=== PATIENT | female | born 1990 | race Caucasian/White ===

== ENCOUNTER 2025-03-11 10:09 | Emergency (ER) | payer OTHER, SELFPAY ==
[2025-03-11 10:17] VITALS: BP 140/75; PULSE 99; RESP 17; TEMP 36.8; O2SAT 93; BMI 42.0
--- OUTSIDE RECORDS SUMMARY | 2025-03-11 10:22 | XMS_ITS | Patient Health Record ---
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 Name Role Phone Barbara Russell Primary Care Provider Eros Jarvis [phone] Allergies No Known Allergies Reason For Referral No Information Medications Medication SIG (Take, Route, Frequency, Duration) Notes Start Date End Date Status Baclofen 10 MG Tablet 1 tablet as needed Orally Twice a day as needed Active Acetaminophen Extra Strength 500 MG Tablet 2 tablet as needed Orally every 6 hrs Active Ibuprofen 800 MG Tablet 1 tablet with fo od or milk as needed Orally Three times a day Active Social History Tobacco Use: Social History Observation Description Date Details (start date - stop date) Never Smoker NA - NA Social History Drugs/Alcohol: Social Info Question Answer Notes Alcohol Screen (Audit-C) Did you have a drink containing alcohol in the past year? No Points 0 Interpretation Negative Drugs Have you used drugs other than those for medical reasons in the past 12 months? No Have you used drugs other than those for medical reasons in the past 12 months? No Tobacco Use: Social Info Question Answer Notes xTobacco Use/Smoking Are you a nonsmoker Are you a nonsmoker Additional Details Category Social Info Options Details Drugs/Alcohol: Do you smoke marijuana? De nies zzMigrated Social History Migrated Social History Advance Directive: Current and Verified Signed on 08/30/2011 Organ Donation: Patient refuses Organ Donation Accepted Portal User: User Name: Jennifer Initial Password [email or web address] Occupation: Student Problems Problem Type SNOMED Code ICD Code Onset Dates Problem Status W/U Status Risk Notes Problem Abnormal menstruation (626287904) Abnormal menstruation (N92.6) Active confirmed Problem Altered mental status (256183157) Altered mental status (780.09) 01/15/20 13 Active confirmed [id number]- Problem Seborrhea capitis (601203024) Seborrhea capitis (690.11) 03/26/20 12 Problem resolved confirmed [id number]- Problem Gynecological examination normal (512192843888199 ) Routine gynecological examination (V72.31) 09/01/19 19 Problem resolved confirmed [id number]- Problem 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) Other abnormal findings on blood examination (790.99) 09/19/19 19 Problem resolved confirmed [id number]- Problem 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) 08/30/19 12 Problem resolved confirmed [id number]- Problem Contraception care education done (855141511412634 ) request for oral contraceptive initiation (V25.01) 08/01/20 12 Problem resolved confirmed [id number]- Problem URI (6856832210) URI (465.8) 08/13/20 19 Problem resolved confirmed [id number]- Problem Essential hypertension (88277938) Essential hypertension (401.1) 07/08/20 18 Problem resolved confirmed [id number] 11- Plan Of Treatment No Information Insurance Providers Payer Name Payer Address Payer Phone Subscriber Number Group Number Insured Name Patient Relationship to Insured Coverage Start Date Coverage End Date [facility] Medicare Advantage PPO [address] [address] [place] [phone] [id number] [facility] Self - patient is the insured Medical (General) History Medical History History ICD Code None Psoriasis undefined Surgical History Surgery Date(Month/Year) NONE Oral surgery 2009
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
--- NOTE | 2025-03-11 10:31 | PC.NURSE ---
PT PLACED IN C-COLLAR IN TRIAGE.
[2025-03-11 11:02] LABS: Hematocrit 39.2 % (36-47); Hemoglobin 12.30 g/dL (11.27-16.99); Mean Corpuscular HGB Conc 31.4 g/dL (30-55); Mean Corpuscular Hemoglobin 25.9 pg (27-33); Mean Corpuscular Volume 82.7 fl (85-98); Nucleated Red Blood Cells % 0 %; Platelet Count 309 10^3/cmm (157-399); Red Blood Count 4.74 10^6/uL (3.85-5.65); White Blood Count 11.09 10^3/uL (3.29-11.43)
[2025-03-11 11:03] LABS: Glucose Urine UA Negative (Normal); Nitrate Urine Negative (Negative); Specific Gravity, Urine 1.016 (1.005-1.030)
[2025-03-11 11:06] LABS: Add Urine Microscopic? YES
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
[2025-03-11 11:26] LABS: Alanine Aminotransferase 12 U/L (0-33); Albumin Level 3.8 g/dL (3.5-5.2); Alkaline Phosphatase 71 U/L (35-105); Anion Gap 15.1 (5-19); Aspartate Amino Transferase 12 U/L (0-32); Blood Urea Nitrogen 11 mg/dL (6-20); Calcium 8.9 mg/dL (8.5-10.5); Carbon Dioxide 23 mmol/L (22-29); Chloride 102 mmol/L (98-107); Creatinine Clr Calc Pharmacy 168.6440; Globulin 3.5 g/dL (1.3-4.6); Glucose 92 mg/dL (65-115); Osmolality Calculated 281 mOsm/kg (285-295); Potassium 4.1 mmol/L (3.5-5.1); Sodium 136 mmol/L (136-145); Total Protein 7.3 g/dL (6.6-8.7)
== END 2025-03-11 12:19 | disposition home or self-care (01) ==
PROVIDERS: Emergency Provider Family Medicine
DX: S13.4XXA Sprain of ligaments of cervical spine, initial encounter (principal); V89.2XXA Person injured in unspecified motor-vehicle accident, traffic, initial encounter
CPT/HCPCS: 36415; 72040; 80053; 81001; 85025; 87077; 87086; 87186; 99284